=== PATIENT | female | born 1950 | race Caucasian/White ===

== ENCOUNTER 2017-01-25 01:07 | Inpatient (IN) | payer MEDICARE, BC ==
[~2017-01-25] VITALS: Ht 160 cm; Wt 79.0 kg
[2017-01-25] VITALS (7 sets, daily range): BP systolic 99–138; BP diastolic 59–77
[2017-01-25] MEDS ORDERED: ASPIRIN 81 MG TAB.CHEW PO ONE (01:30)
[2017-01-25] MEDS ORDERED: NITROGLYCERIN SUBLINGUAL 0.4 MG BOTTLE OF 25. SL PRN (01:30)
--- NOTE | 2017-01-25 01:56 | EKG ---
[address] [address] Test Date: 2017-01-25 Test Time: 01:14:39 Pat Name: ELI REYNAGA Department: Room: Gender: F Er Rn: SUNNY : 1950 Requested By: LONA GOODMAN Order Number: [id number] Reading MD: Rony Willis MD Measurements Intervals [place] Rate: 93 P: -86 OR: 94 QRS: -18 QRSD: 80 T: 26 QT: 362 QTc: 453 Interpretive Statements SINUS RHYTHM NON-SPECIFIC ST/T CHANGES Electronically Signed On 01-26-2017 16:38:33 CRYSTAL EVALUATOR by Rony Willis MD
[2017-01-25 02:09] LABS: BASO % 0 % (0-3); EOS # 0.2 x10^3/uL (0.0-0.7); EOS % 2 % (0-3); HEMATOCRIT 31.2 % (36.0-47.0); HEMOGLOBIN 10.5 g/dL (12.0-15.5); LYMPH # 2.5 x10^3/uL (1.0-4.8); LYMPH % 30 % (24-48); MEAN CORPUSCULAR HEMOGLOBIN 29 pg (25-35); MEAN CORPUSCULAR HGB CONC 34 g/dL (31-37); MEAN CORPUSCULAR VOLUME 85 fL (79-100); MONO # 0.5 x10^3/uL (0.0-1.1); MONO % 6 % (0-9); NEUT # 5.3 x10^3uL (1.8-7.7); NEUT % 62 % (31-73); PLATELET COUNT 294 x10^3/uL (140-400); RED BLOOD COUNT 3.68 x10^6/uL (3.50-5.40); RED CELL DISTRIBUTION WIDTH 14.9 % (11.5-14.5); WHITE BLOOD COUNT 8.6 x10^3/uL (4.0-11.0)
[2017-01-25] MEDS ORDERED: MORPHINE SULFATE 2 MG/ML DISP.SYRIN. ONE (02:13)
[2017-01-25] MEDS ORDERED: MORPHINE SULFATE 4 MG/ML DISP.SYRIN. IV ONE (02:15)
[2017-01-25 02:29] LABS: ALBUMIN 3.3 g/dL (3.4-5.0); CALCIUM 8.5 mg/dL (8.5-10.1); CREATININE 1.4 mg/dL (0.6-1.0); GFR 37.4; MAGNESIUM 1.5 mg/dL (1.8-2.4); POTASSIUM 3.7 mmol/L (3.5-5.1); TOTAL BILIRUBIN 0.3 mg/dL (0.2-1.0); TOTAL PROTEIN 6.7 g/dL (6.4-8.2)
--- NOTE | 2017-01-25 02:56 | PHYS DOC ---
Past History Past Medical History: Cancer, GERD Past Surgical History: Cancer Surgery Alcohol Use: None Drug Use: None Adult General Chief Complaint Chief Complaint: CHEST PAIN HPI HPI Patient is a 66-year-old female who presents ambulatory to the ED with the complaint of pain across her anterior chest, substernal, which has been going on for about an hour. The patient is in town visiting family staying in a hotel. She was fine when she went to bed, she was waked up by substernal chest pain. She's never had pain like this before. The pain is a 9 or a 10. She feels a little short of breath, denies nausea, denies sweating. She feels cold but that's usual for her. Patient states that she suffers from GERD, she takes omeprazole and tries to make sure that she doesn't eat too late in the evening. This does not feel like her GERD. She denies previous cardiac history. Patient was treated for breast cancer about 20 years ago. She also had "stomach stapling" for weight loss many years ago. She has a history of anemia. She denies history of OH, cardiac history, denies history of blood clot. Review of Systems Review of Systems Constitutional: Denies fever , she is always cold and feels cold right now HENT: Denies nasal congestion or sore throat [] Respiratory: As in history of present illness Cardiovascular: As in history of present illness GI: Denies abdominal pain, nausea, vomiting, bloody stools or diarrhea [] : Denies dysuria or hematuria [] Musculoskeletal: Denies back pain or joint pain [] Integument: Denies rash or skin lesions [] All other systems were reviewed and found to be within normal limits, except as documented in this note. Current Medications Current Medications Current Medications Medications (Trade) Dose Ordered Sig/Avi Start Time Stop Time Status Last Admin Dose Admin Aspirin (Children'S Aspirin) 324 mg 1X ONCE 01/25/17 01:30 01/25/17 02:14 DC 01/25/17 01:30 324 MG Morphine Sulfate (Morphine 2mg Syringe) 2 mg STK-MED ONCE 01/25/17 02:13 01/25/17 02:14 DC Morphine Sulfate (Morphine 4mg Syringe) 2 mg 1X ONCE 01/25/17 02:15 01/25/17 02:16 DC 01/25/17 02:15 2 MG Nitroglycerin (Nitrostat) 0.4 mg PRN Q5MIN PRN 01/25/17 01:30 01/26/17 01:29 01/25/17 01:41 0.4 MG Allergies Allergies Allergies Coded Allergies Type Severity Reaction Last Updated Verified No Known Drug Allergies 01/25/17 No Physical Exam Physical Exam Constitutional: Well developed, well nourished, alert, mentating normally, warm and dry. Appears to be uncomfortable. HENT: Normocephalic, atraumatic, bilateral external ears normal, nose normal. [ ] Eyes: conjunctiva normal, no discharge. [] Neck: Normal range of motion, no stridor. [] Cardiovascular:Heart rate regular rhythm, no murmur [] Lungs & Thorax: Bilateral breath sounds clear to auscultation [] Abdomen: Bowel sounds normal, soft, no tenderness, no masses, no pulsatile masses. [] Skin: Warm, dry, no erythema, no rash. [] Extremities: No tenderness, no cyanosis, no clubbing, ROM intact, no edema. [] Neurologic: Alert and oriented X 3, normal motor function, no focal deficits noted. [] Current Patient Data Vital Signs Vital Signs Date Time Temp Pulse Resp B/P (MAP) Pulse Ox O2 Delivery O2 Flow Rate FiO2 01/25/17 02:44 85 20 118/71 (87) 100 2.0 01/25/17 02:15 Nasal Cannula 01/25/17 01:12 97.8 Lab Results Laboratory Tests Test 01/25/17 01:42 01/25/17 01:44 White Blood Count 8.6 x10^3/uL (4.0-11.0) Red Blood Count 3.68 x10^6/uL (3.50-5.40) Hemoglobin 10.5 g/dL (12.0-15.5) L Hematocrit 31.2 % (36.0-47.0) L Mean Corpuscular Volume 85 fL (79-100) Mean Corpuscular Hemoglobin 29 pg (25-35) Mean Corpuscular Hemoglobin Concent 34 g/dL (31-37) Red Cell Distribution Width 14.9 % (11.5-14.5) H Platelet Count 294 x10^3/uL (140-400) Neutrophils (%) (Auto) 62 % (31-73) Lymphocytes (%) (Auto) 30 % (24-48) Monocytes (%) (Auto) 6 % (0-9) Eosinophils (%) (Auto) 2 % (0-3) Basophils (%) (Auto) 0 % (0-3) Neutrophils # (Auto) 5.3 x10^3uL (1.8-7.7) Lymphocytes # (Auto) 2.5 x10^3/uL (1.0-4.8) Monocytes # (Auto) 0.5 x10^3/uL (0.0-1.1) Eosinophils # (Auto) 0.2 x10^3/uL (0.0-0.7) Basophils # (Auto) 0.0 x10^3/uL (0.0-0.2) Prothrombin Time 10.7 SEC (9.4-11.4) Prothrombin Time INR 1.0 (0.9-1.1) PTT 25 SEC (23-33) Sodium Level 139 mmol/L (136-145) Potassium Level 3.7 mmol/L (3.5-5.1) Chloride Level 104 mmol/L (98-107) Carbon Dioxide Level 26 mmol/L (21-32) Anion Gap 9 (6-14) Blood Urea Nitrogen 15 mg/dL (7-20) Creatinine 1.4 mg/dL (0.6-1.0) H Estimated GFR (Cockcroft-Gault) 37.4 BUN/Creatinine Ratio 11 (6-20) Glucose Level 91 mg/dL (70-99) Calcium Level 8.5 mg/dL (8.5-10.1) Magnesium Level 1.5 mg/dL (1.8-2.4) L Total Bilirubin 0.3 mg/dL (0.2-1.0) Aspartate Amino Transferase (AST) 21 U/L (15-37) Alanine Aminotransferase (ALT) 21 U/L (14-59) Alkaline Phosphatase 70 U/L (46-116) Creatine Kinase 78 U/L (26-192) Creatine Kinase MB (Mass) 0.5 ng/mL (0.0-3.6) Creatine Kinase MB Relative Index 0.6 % (0-4) Troponin I Quantitative < 0.017 ng/mL (0-0.055) RV-Xmt-J-Type Natriuretic Peptide 266 pg/mL (0-124) H Total Protein 6.7 g/dL (6.4-8.2) Albumin 3.3 g/dL (3.4-5.0) L Albumin/Globulin Ratio 1.0 (1.0-1.7) POC Troponin I 0.01 ng/ml (<0.08) EKG EKG 12-lead EKG #1 read by me. Sinus rhythm. Heart rate 93. There are no acute ST or T wave changes indicative of ischemia or infarction. No STEMI. Normal EKG. 0114[] Repeat 12-lead EKG #2 read by me. Sinus rhythm. Heart rate 87. There are no acute ST or T wave changes indicative of ischemia or infarction. No STEMI. Normal EKG. 0242 Radiology/Procedures Radiology/Procedures One view portable chest x-ray read by me. Heart size is normal. Lung carvajal are clear. Normal chest x-ray.[] Course & Med Decision Making Course & Med Decision Making Pertinent Labs and Imaging studies reviewed. (See chart for details) 66-year-old female who does not have a cardiac history presents to the ED with about one hour of substernal chest pain that is a 9 out of 10. Although she has a history of GERD. She's never had pain like this before. And it does not seem like GERD to her. Initial EKG is normal. I-STAT troponin is normal. I remain concerned about the cause of her pain. There is no other source to attribute her pain to. She was given aspirin 324 and also given a sublingual nitroglycerin. That caused her to have brief hypotension that was treated with IV fluids and rebounded quickly. Labs remarkable for mild anemia which the patient states is chronic for her. Troponin negative. The patient presented after only about an hour of pain. I don't believe we can fully rule out cardiac etiology based on one EKG and one set of enzymes in the ED. Discussed this with the patient and her . I recommend admission to the hospital for serial enzymes and observation on the telemetry unit. She also is requiring IV pain meds for her pain which is severe in nature. Patient is agreeable to be admitted to the hospital. I discussed the case with Dr. Mon. She will admit the patient. I wrote bridge orders. The patient remained stable in the ED. [] Dragon Disclaimer Dragon Disclaimer This electronic medical record was generated, in whole or in part, using a voice recognition dictation system. Departure Departure: Impression: Primary Impression: Chest pain Disposition: ADMITTED INPATIENT Admitting Physician: Veronica Mon Condition: STABLE Referrals: NON,STAFF (PCP) LONA GOODMAN MD Jan 25, 2017 02:55
[2017-01-25] MEDS ORDERED: ONDANSETRON PF 4 MG/2 ML VIAL. IV PRN (03:00)
[2017-01-25] MEDS ORDERED: LIDO:MAALOX 1:1 20 ML SINGLE DOSE PO ONE ×2 (03:00→07:45)
[2017-01-25] MEDS ORDERED: MORPHINE SULFATE 2 MG/ML DISP.SYRIN. IV PRN (03:00)
[2017-01-25] MEDS ORDERED: BUPR150T8 PO ×2 (04:01)
[2017-01-25] MEDS ORDERED: levothyroxine (04:01)
[2017-01-25] MEDS ORDERED: OMEP40CA5 PO (04:01)
[2017-01-25] MEDS ORDERED: FEXO180T81 PO (04:01)
[2017-01-25] MEDS ORDERED: BECL8.7A6 IH (04:01)
--- NOTE | 2017-01-25 06:07 | EKG ---
[address] [address] Test Date: 2017-01-25 Test Time: 02:42:46 Pat Name[facility] Department: Room: 111 A Gender: F Emr Trainer: SUNNY : 1950 Requested By: LONA GOODMAN Order Number: [id number] Reading MD: Rony Willis MD Measurements Intervals [place] Rate: 87 P: 43 IA: 158 QRS: -8 QRSD: 80 T: 26 QT: 378 QTc: 455 Interpretive Statements SINUS RHYTHM Electronically Signed On 01-26-2017 16:38:56 TRANSPORTATION CLERK by Rony Willis MD
[2017-01-25] MEDS ORDERED: MAGNESIUM SULFATE 2GM 50 ML IV ONE (06:30)
[2017-01-25 07:21] LABS: BASO % 0 % (0-3); EOS % 1 % (0-3); HEMATOCRIT 29.9 % (36.0-47.0); HEMOGLOBIN 10.2 g/dL (12.0-15.5); LYMPH # 1.5 x10^3/uL (1.0-4.8); LYMPH % 17 % (24-48); MEAN CORPUSCULAR HEMOGLOBIN 29 pg (25-35); MEAN CORPUSCULAR HGB CONC 34 g/dL (31-37); MEAN CORPUSCULAR VOLUME 85 fL (79-100); MONO # 0.6 x10^3/uL (0.0-1.1); MONO % 7 % (0-9); NEUT # 6.8 x10^3uL (1.8-7.7); NEUT % 76 % (31-73); PLATELET COUNT 257 x10^3/uL (140-400); RED BLOOD COUNT 3.53 x10^6/uL (3.50-5.40); RED CELL DISTRIBUTION WIDTH 14.4 % (11.5-14.5)
[2017-01-25 07:30] LABS: ALBUMIN 3.2 g/dL (3.4-5.0); ALBUMIN/GLOBULIN RATIO 0.9 (1.0-1.7); CALCIUM 8.5 mg/dL (8.5-10.1); CREATININE 1.5 mg/dL (0.6-1.0); GFR 34.5; POTASSIUM 4.2 mmol/L (3.5-5.1); TOTAL BILIRUBIN 0.5 mg/dL (0.2-1.0); TOTAL PROTEIN 6.7 g/dL (6.4-8.2)
[2017-01-25] MEDS: buPROPion SR 150 MG TABLET.SA PO SCH (07:51)
[2017-01-25] MEDS: PANTOPRAZOLE 40 MG TABLET. PO SCH (07:51)
[2017-01-25] MEDS: CETIRIZINE HCL 10 MG TABLET PO SCH (07:52)
--- NOTE | 2017-01-25 08:11 | RAD ---
EXAM: Chest one view. HISTORY: Chest pain. COMPARISON: None. FINDINGS: A frontal view of the chest is obtained. There are no confluent infiltrates. There is no pneumothorax or pleural effusion. The heart is not enlarged. There are surgical clips in left axilla and left upper quadrant. IMPRESSION: 1. No confluent infiltrates.
[2017-01-25] MEDS ORDERED: NON FORMULARY ITEM (Beclomethasone Dipropionate (Qvar 80MCG Inhaler) 1 PUFF) IH SCH (09:00)
[2017-01-25] MEDS ORDERED: ENOXAPARIN 30 MG/0.3 ML DISP.SYRIN. SQ SCH (09:00)
[2017-01-25] MEDS ORDERED: MAGNESIUM HYDROXIDE 2,400 MG/30 ML ORAL.SUSP. PO ONE (11:30)
[2017-01-25] MEDS: BUDESONIDE 0.5 MG/2 ML NEBU NEB SCH ×2 (11:49→11:52)
[2017-01-25 12:23] LABS: BACTERIA,URINE FEW /HPF (0-FEW); BILIRUBIN,URINE NEG (NEG); CLARITY,URINE HAZY; COLOR,URINE YELLOW; GLUCOSE,URINE NEG (NEG); NITRITE,URINE NEG (NEG); RBC,URINE 0 /HPF (0-2); SQUAMOUS EPITHELIAL CELL,UR OCC /LPF; UROBILINOGEN,URINE 0.2 mg/dL (0.2 mg/dL); WBC,URINE RARE /HPF (0-4)
[2017-01-25] MEDS ORDERED: SUMAtriptan SUCCINATE 50 MG TABLET PO PRN (15:15)
--- NOTE | 2017-01-25 15:46 | PDOC2 ---
CONSULT Date of Admission DATE: 01/25/17 TIME: 15:45 Reason for Consult: cp Problem List Problems Medical Problems: (1) Chest pain Status: Acute History of Present Illness Ms Robles is a 66 year old female who presents with complaints of chest pain starting last pm around [place]. She describes a sharp midsternal pain that radiated to the epigastric area and bilaterally along her ribs. She reports pain is somewhat increased with laying flat, worse with deep inspiration and upper body movement. She reports some associated shortness of breath. She reports having NTG without improvement, some improvement with pain meds and feels the GI coctail gave her the most relief. She does state that she is still having pain and it has never completely resolved. She denies any prior chest pain or dyspnea. She denies congestive symptoms but reports sleeping with her head somewhat elevated due to problems with GERD. She reports occasional episodes of lightheadedness, diaphoresis and a feeling like she might pass out. She relates this to needing to have a bowel movement and difficulty with constipation. She also reports problems with low blood pressure on standing and lightheadedness associated with that. She reports having had a stress test about 2 years ago which was apparently normal. She denies any palpitations or syncope. Past Medical History GERD, Constipation, breast cancer, hypothyroid, orthostatic hypotension, asthma , mild renal insufficiency, migraines Past Surgical History lumpectomy, cholecystectomy, knee surgery, bariatric surgery Family History COPD, no premature coronary disease Social History non smoker, no significant ETOH, no illicit drugs. She is visiting here from [place]. Current Medications Current Medications Aspirin (Children'S Aspirin) 324 mg 1X ONCE PO Last administered on 01:30; Start 01/25/17 at 01:30; Stop 01/25/17 at 02:14; Status DC Nitroglycerin (Nitrostat) 0.4 mg PRN Q5MIN PRN SL CP RATING > 1/10 Last administered on 01/25/17 01:41; Start 01/25/17 at 01:30; Stop 01/26/17 at 01 :29 Morphine Sulfate (Morphine 4mg Syringe) 2 mg 1X ONCE IV Last administered on 01/25/17 02:15; Start 01/25/17 at 02:15; Stop 01/25/17 at 02:16; Status DC Morphine Sulfate (Morphine 2mg Syringe) 2 mg STK-MED ONCE .ROUTE ; Start at 02:13; Stop 01/25/17 at 02:14; Status DC Multi-Ingredient Mouthwash/Gargle (Gi Cocktail) 20 ml 1X ONCE PO Last administered on 01/25/17 03:01; Start 01/25/17 at 03:00; Stop 01/25/17 at 04 :18; Status DC Ondansetron HCl (Zofran) 4 mg PRN Q4HRS PRN IV NAUSEA/VOMITING; Start at 03:00; Stop 01/26/17 at 02:59 Morphine Sulfate (Morphine 2mg Syringe) 2 mg PRN Q2HR PRN IV PAIN; Start 01/25 at 03:00; Stop 01/26/17 at 02:59 Magnesium Sulfate 50 ml @ 25 mls/hr 1X ONCE IV Last administered on 07:50; Start 01/25/17 at 06:30; Stop 01/25/17 at 08:29; Status DC Enoxaparin Sodium (Lovenox) 30 mg Q24H SQ Last administered on 01/25/17 07:51 ; Start 01/25/17 at 09:00 Bupropion HCl (Wellbutrin Sr) 150 mg DAILY PO Last administered on 01/25/17 07:51; Start 01/25/17 at 09:00 Bupropion HCl (Wellbutrin Sr) 300 mg QHS PO ; Start 01/25/17 at 21:00 Non-Formulary Medication 1 puff DAILY IH ; Start 01/25/17 at 09:00; Stop 01/25 at 09:00; Status DC Cetirizine HCl (ZyrTEC) 10 mg DAILY PO Last administered on 01/25/17 07:52; Start 01/25/17 at 09:00 Pantoprazole Sodium (Protonix) 40 mg DAILYAC PO Last administered on 07:51; Start 01/25/17 at 07:30 Budesonide (Pulmicort) 0.5 mg DAILY NEB Last administered on 01/25/17 11:52; Start 01/25/17 at 09:00 Multi-Ingredient Mouthwash/Gargle (Gi Cocktail) 20 ml 1X ONCE PO Last administered on 01/25/17 09:17; Start 01/25/17 at 07:45; Stop 01/25/17 at 07 :46; Status DC Magnesium Hydroxide (Milk Of Magnesia) 2,400 mg 1X ONCE PO Last administered on 01/25/17 11:12; Start 01/25/17 at 11:30; Stop 01/25/17 at 11:31; Status DC Sumatriptan Succinate (Imitrex) 100 mg PRN Q2HR PRN PO MIGRAINE HEADACHE Last administered on 01/25/17 15:34; Start 01/25/17 at 15:15 Active Scripts Active Reported Janae Allergy (Fexofenadine Hcl) 180 Mg Tablet 1 Tab PO DAILY Qvar 80MCG Inhaler (Beclomethasone Dipropionate) 8.7 Gm Aer.w.adap 1 Puff IH DAILY Omeprazole 40 Mg Capsule.dr 1 Cap PO DAILY [levothyroxine] DAILY Wellbutrin Sr (Bupropion Hcl) 150 Mg Tablet.er 300 Mg PO QHS Wellbutrin Sr (Bupropion Hcl) 150 Mg Tablet.er 150 Mg PO DAILY Allergies: Coded Allergies: No Known Drug Allergies (Unverified , 01/25/17) Review of System as per HPI or negative General: Alert, Oriented X3, Cooperative, mild distress HEENT: Atraumatic Lungs: Clear to auscultation, Normal air movement Heart: Regular rate, Normal S1, Normal S2, Other (no gallops, clicks or rubs) Abdomen: Normal bowel sounds, Soft Extremities: No cyanosis, No edema, Normal pulses Neuro: Normal speech, Strength at 5/5 X4 ext Psych/Mental Status: Mental status NL, Mood NL VITALS Vital Signs Date Time Temp Pulse Resp B/P (MAP) Pulse Ox O2 Delivery O2 Flow Rate FiO2 01/25/17 11:49 96 Room Air 01/25/17 11:23 99.5 94 22 99/59 (72) 01/25/17 02:44 2.0 Labs Laboratory Tests Test 01/25/17 01:42 01/25/17 01:44 01/25/17 07:00 01/25/17 11:10 White Blood Count 8.6 x10^3/uL (4.0-11.0) 9.0 x10^3/uL (4.0-11.0) Red Blood Count 3.68 x10^6/uL (3.50-5.40) 3.53 x10^6/uL (3.50-5.40) Hemoglobin 10.5 g/dL (12.0-15.5) 10.2 g/dL (12.0-15.5) Hematocrit 31.2 % (36.0-47.0) 29.9 % (36.0-47.0) Mean Corpuscular Volume 85 fL (79-100) 85 fL (79-100) Mean Corpuscular Hemoglobin 29 pg (25-35) 29 pg (25-35) Mean Corpuscular Hemoglobin Concent 34 g/dL (31-37) 34 g/dL (31-37) Red Cell Distribution Width 14.9 % (11.5-14.5) 14.4 % (11.5-14.5) Platelet Count 294 x10^3/uL (140-400) 257 x10^3/uL (140-400) Neutrophils (%) (Auto) 62 % (31-73) 76 % (31-73) Lymphocytes (%) (Auto) 30 % (24-48) 17 % (24-48) Monocytes (%) (Auto) 6 % (0-9) 7 % (0-9) Eosinophils (%) (Auto) 2 % (0-3) 1 % (0-3) Basophils (%) (Auto) 0 % (0-3) 0 % (0-3) Neutrophils # (Auto) 5.3 x10^3uL (1.8-7.7) 6.8 x10^3uL (1.8-7.7) Lymphocytes # (Auto) 2.5 x10^3/uL (1.0-4.8) 1.5 x10^3/uL (1.0-4.8) Monocytes # (Auto) 0.5 x10^3/uL (0.0-1.1) 0.6 x10^3/uL (0.0-1.1) Eosinophils # (Auto) 0.2 x10^3/uL (0.0-0.7) 0.0 x10^3/uL (0.0-0.7) Basophils # (Auto) 0.0 x10^3/uL (0.0-0.2) 0.0 x10^3/uL (0.0-0.2) Prothrombin Time 10.7 SEC (9.4-11.4) Prothromb Time International Ratio 1.0 (0.9-1.1) Activated Partial Thromboplast Time 25 SEC (23-33) Sodium Level 139 mmol/L (136-145) 138 mmol/L (136-145) Potassium Level 3.7 mmol/L (3.5-5.1) 4.2 mmol/L (3.5-5.1) Chloride Level 104 mmol/L (98-107) 105 mmol/L (98-107) Carbon Dioxide Level 26 mmol/L (21-32) 25 mmol/L (21-32) Anion Gap 9 (6-14) 8 (6-14) Blood Urea Nitrogen 15 mg/dL (7-20) 14 mg/dL (7-20) Creatinine 1.4 mg/dL (0.6-1.0) 1.5 mg/dL (0.6-1.0) Estimated GFR (Cockcroft-Gault) 37.4 34.5 BUN/Creatinine Ratio 11 (6-20) 9 (6-20) Glucose Level 91 mg/dL (70-99) 104 mg/dL (70-99) Calcium Level 8.5 mg/dL (8.5-10.1) 8.5 mg/dL (8.5-10.1) Magnesium Level 1.5 mg/dL (1.8-2.4) Total Bilirubin 0.3 mg/dL (0.2-1.0) 0.5 mg/dL (0.2-1.0) Aspartate Amino Transf (AST/SGOT) 21 U/L (15-37) 79 U/L (15-37) Alanine Aminotransferase (ALT/SGPT) 21 U/L (14-59) 47 U/L (14-59) Alkaline Phosphatase 70 U/L (46-116) 70 U/L (46-116) Creatine Kinase 78 U/L (26-192) Creatine Kinase MB (Mass) 0.5 ng/mL (0.0-3.6) Creatine Kinase MB Relative Index 0.6 % (0-4) Troponin I Quantitative < 0.017 ng/mL (0-0.055) < 0.017 ng/mL (0-0.055) ML-Nmg-W-Type Natriuretic Peptide 266 pg/mL (0-124) Total Protein 6.7 g/dL (6.4-8.2) 6.7 g/dL (6.4-8.2) Albumin 3.3 g/dL (3.4-5.0) 3.2 g/dL (3.4-5.0) Albumin/Globulin Ratio 1.0 (1.0-1.7) 0.9 (1.0-1.7) Bedside Troponin I 0.01 ng/ml (<0.08) Urine Collection Type Unknown Urine Color Yellow Urine Clarity Hazy Urine pH 6.0 Urine Specific Alpha 1.010 Urine Protein Neg (NEG-TRACE) Urine Glucose (UA) Neg mg/dL (NEG) Urine Ketones (Stick) Neg mg/dL (NEG) Urine Blood Neg (NEG) Urine Nitrite Neg (NEG) Urine Bilirubin Neg (NEG) Urine Urobilinogen Dipstick 0.2 mg/dL (0.2 mg/dL) Urine Leukocyte Esterase Trace (NEG) Urine RBC 0 /HPF (0-2) Urine WBC Rare /HPF (0-4) Urine Squamous Epithelial Cells Occ /LPF Urine Bacteria Few /HPF (0-FEW) Test 01/25/17 14:12 Troponin I Quantitative < 0.017 ng/mL (0-0.055) Images EKG sinus rhythm without acute ischemic changes CXR -IMPRESSION: 1. No confluent infiltrates. Assessment/Plan 1. chest pain, atypical - CE negative x 3 2. hypotension - mild 3. presyncope - likely secondary to vasovagal - short PAT noted on monitor. would suggest outpatient monitoring. 4. gerd 5. mild renal insufficiency - likely chronic Will plan for echo and MPI in am. Problems: RISHABH GOMES FACULTY DEAN Jan 25, 2017 15:46
[2017-01-25] MEDS: IV DEXTROSE 5% - 0.9 % NACL 1,000 ML IV SCH (17:27)
--- NOTE | 2017-01-25 17:36 | HP ---
ADMIT DATE: 01/25/2017 HISTORY OF PRESENT ILLNESS: The patient is a 66-year-old female patient who walked into the Emergency Room with a complaint of pain across her anterior chest, substernal, has been going on for almost an hour. The patient is in town visiting family, staying in a hotel. She was fine when she went to bed. She was awakened by substernal chest pain. She never had pain like this before and the nearest thing that she has experienced similar when she had had acute cholecystitis. She rated the pain at 9/10 in severity. She did have a little shortness of breath. Denied any nausea, denied any sweating. She feels cold, but that she was well for her. She stated that she suffered from gastroesophageal reflux disease and she takes omeprazole and tries to make sure that she does not eat too late in the evening. She does not like feel her acid reflux. She denied any previous cardiac history. She was evaluated in the Emergency Room, has had her two sets of cardiac enzymes that were negative and was admitted for further evaluation and treatment. PAST MEDICAL HISTORY: Significant for hypothyroidism, bronchial asthma, osteoarthritis, morbid obesity, gastroesophageal reflux disease, and breast cancer. PAST SURGICAL HISTORY: Significant for cholecystectomy, appendectomy, arthroscopic surgery of her left knee and gastric sleeve surgery. She also had segmental lumpectomy of her left breast and was treated with chemotherapy and radiation treatment, the last time she saw her oncologist about 5 years ago. ALLERGIES: She has no known drug allergies. MEDICATIONS: She is currently on the following medications: She is on QVAR 80 mcg inhaler 1 puff daily. She is on Wellbutrin 150 mg daily, Wellbutrin extended release 300 mg at bedtime, fexofenadine 880 mg daily, omeprazole 40 mg once a day, and levothyroxine, the dose of which is not clear. She takes it once a day for hypothyroidism. FAMILY HISTORY: She has one sister younger and healthy. She has her mother. Her father at age of 78 because of COPD and mother is still alive at the age 90, and has atrial fibrillation. SOCIAL HISTORY: She is , has a son and daughter. She never smoked. Drinks alcohol occasionally. 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 REVIEW OF SYSTEMS: The patient denied any blurring of vision, cataract, glaucoma or macular degeneration. Denied any earache, tinnitus or sensorineural deafness. Denied any nosebleeds, stuffy nose or postnasal drip. Denied any sore throat, sore tongue, toothache, hoarseness of voice or difficulty swallowing. Did complain of some nausea, but no vomiting. She has also severe constipation, but denied any diarrhea. Denied any hematemesis, melena or hematochezia. Denied any dysuria, frequency or hematuria. Did complain of lower chest pain, some shortness of breath, but denied any cough, phlegm or hemoptysis. Denied any chills, rigors, or fever. Denied any dizziness, lightheadedness, or vertigo. PHYSICAL EXAMINATION: GENERAL: On arrival to the Emergency Room, she was somewhat pale, but not jaundiced, cyanosis, or thyromegaly. No jugular venous distention. No limb edema. VITAL SIGNS: Her heart rate was 82, blood pressure 147/87, temperature was 97.8, respiratory rate 20, and oxygen saturation was 99% on room air. HEAD, EYES, EARS, NOSE, AND THROAT: Showed normocephalic, atraumatic. NECK: Supple. HEART: Showed normal first and second sounds. No gallop, rub or murmur. CHEST: Clear to auscultation. No crepitation or rhonchi. ABDOMEN: Distended, soft. There was definitely no tenderness. No guarding or rigidity. No organomegaly. Hernial orifice intact. Bowel sounds normal. NEUROLOGIC: She was awake, alert, responding appropriately. Cranial nerves intact. EXTREMITIES: She moves extremities without difficulty. She apparently ambulates without assistance or assistive devices. LABORATORY DATA: On arrival to the Emergency Room showed that her serum sodium was 139, potassium 3.7, chloride 104, bicarbonate 26, anion gap of 9, BUN 15, creatinine 1.4, estimated GFR was 57 mL per minute. Her glucose was 91, calcium was 98.5, magnesium was 1.5. Total bilirubin, AST, ALT, alkaline phosphatase were normal. Her total protein was 6.7, albumin 3.3. Her white cell count was 8600, hemoglobin 10.5, hematocrit 31, MCV 85, and platelet count 294,000. Her prothrombin time was 10.7, INR of 1, aPTT was 25. Urinalysis showed the urine was yellow, hazy with a pH of 6, specific gravity of 1.010. The urine was negative for protein, glucose, ketones, blood, nitrite, and there was trace of leukocyte esterase, 0 RBCs, very rare WBCs, and very few bacteria. She has a chest x-ray, which showed that there are no confluent infiltrates, no pneumothorax or pleural effusion. The heart is not enlarged. There are surgical clips in the left axilla and left upper quadrant. IMPRESSION: In summary, this is a 66-year-old female patient who presented to the Emergency Room with sudden severe pain, rated about 9/10 in severity across her abdomen and radiating through and through to the back. She has so far 3 sets of cardiac enzymes that were negative. She has multitude of medical problems including hypothyroidism, bronchial asthma, and osteoarthritis. She has history of gastroesophageal reflux disease and apparently, she has what seemed to have bowel obstruction and adhesion requiring adhesiolysis. She has cholecystectomy and gastric sleeve surgery. PLAN: My plan is to arrange for her to have given that he has impaired kidney function. I will arrange for her to have a CT scan of the chest, abdomen, and pelvis without contrast and check her serum lipase and the lab work that was done before and decide on further management accordingly. She did apparently spike her temperature this afternoon up to 101.1. I will obviously send blood for culture and sensitivity and also add D-dimer to the lab work and decide the further management accordingly. FAIZAN JONES MD DR: JEFFERSON/joan JOB#: [id number] / [id number]
[2017-01-25] MEDS ORDERED: CONTRAST GIVEN MC PRN (19:45)
[2017-01-25] MEDS ORDERED: IOHEXOL 240 MG/ML 50ML VIAL. PO ONE (19:45)
[2017-01-25] MEDS: HYDROmorphone PF 1 MG/ML DISP.SYRIN IV PRN (19:55)
[2017-01-25] MEDS ORDERED: buPROPion SR 150 MG TABLET.SA PO SCH (21:00)
--- NOTE | 2017-01-25 21:26 | RAD ---
CT scan of the chest, abdomen and pelvis without contrast 01/25/2017 CLINICAL HISTORY: Chest and abdominal pain with nausea and constipation for 2 days. TECHNIQUE: After the oral administration contrast only, contiguous, 3 mm axial sections were obtained through the chest abdomen and pelvis. One or more of the following individualized dose reduction techniques were utilized for this study: 1. Automated exposure control. 2. Adjustment of the mA and/or kV according to patient size. 3. Use of iterative reconstruction technique. FINDINGS: Mild atherosclerotic calcification of the thoracic aorta is seen. The thoracic aorta is tortuous but tapers normally. The heart is normal in size. The esophagus is patulous and filled with contrast. Dependent subsegmental atelectasis is seen involving both lungs. No area of consolidation is seen. No pneumothorax or pleural effusion is noted. The unenhanced CT appearance of the liver, spleen, pancreas, adrenal glands and kidneys are within normal limits. Mild to moderate atherosclerotic calcification abdominal aorta is seen. The abdominal aorta tapers normally. The gallbladder is not visualized consistent with a cholecystectomy. Surgical clips are seen in the region of the GE junction. No free fluid or free air is seen within the abdomen. Postsurgical changes are seen involving the anterior abdominal wall. There is no evidence of bowel obstruction. Images through the pelvis demonstrate the urinary bladder to be contracted. No free fluid is seen. Scattered diverticula are seen involving the sigmoid colon. No inflammatory changes are seen in the adjacent fat. Mild degenerative changes are seen involving the thoracic and lumbar spine and both hips. IMPRESSION: No acute abnormality is seen. Electronically signed by: Mj Rice MD (01/25/2017 9:23 PM) [facility]
[2017-01-26] MEDS: HYDROmorphone PF 1 MG/ML DISP.SYRIN IV PRN (02:44)
[2017-01-26] MEDS: ONDANSETRON PF 4 MG/2 ML VIAL. IV PRN ×2 (05:19→09:54)
[2017-01-26 05:44] VITALS: BP 121/80
[2017-01-26 07:29] LABS: BASO % 0 % (0-3); EOS % 1 % (0-3); HEMATOCRIT 31.3 % (36.0-47.0); HEMOGLOBIN 10.4 g/dL (12.0-15.5); LYMPH # 1.1 x10^3/uL (1.0-4.8); LYMPH % 14 % (24-48); MEAN CORPUSCULAR HEMOGLOBIN 29 pg (25-35); MEAN CORPUSCULAR HGB CONC 33 g/dL (31-37); MEAN CORPUSCULAR VOLUME 86 fL (79-100); MONO # 0.7 x10^3/uL (0.0-1.1); MONO % 8 % (0-9); NEUT # 6.4 x10^3uL (1.8-7.7); NEUT % 77 % (31-73); PLATELET COUNT 225 x10^3/uL (140-400); RED BLOOD COUNT 3.64 x10^6/uL (3.50-5.40); RED CELL DISTRIBUTION WIDTH 14.8 % (11.5-14.5); WHITE BLOOD COUNT 8.2 x10^3/uL (4.0-11.0)
[2017-01-26 07:36] LABS: ALBUMIN/GLOBULIN RATIO 0.8 (1.0-1.7); CALCIUM 8.6 mg/dL (8.5-10.1); CREATININE 1.3 mg/dL (0.6-1.0); GFR 40.7; TOTAL BILIRUBIN 0.9 mg/dL (0.2-1.0); TOTAL PROTEIN 6.9 g/dL (6.4-8.2)
[2017-01-26] MEDS ORDERED: REGADENOSON 0.4 MG/5 ML DISP.SYRIN. IV ONE (08:45)
[2017-01-26] MEDS ORDERED: ENOXAPARIN 40 MG/0.4 ML DISP.SYRIN. SQ SCH (09:00)
--- NOTE | 2017-01-26 09:19 | CARD ---
APPROVED REPORT EXAM: Two-dimensional and M-mode echocardiogram with Doppler and color Doppler. Other Information Quality : Average Rhythm : NSR INDICATION Chest Pain Pre-syncope 2D DIMENSIONS RVDd2.2 (2.9-3.5cm)Left Atrium(2D)2.9 (1.6-4.0cm) IVSd0.9 (0.7-1.1cm)Aortic Root(2D)3.0 (2.0-3.7cm) LVDd3.9 (3.9-5.9cm)LVOT Diameter2.1 (1.8-2.4cm) PWd0.9 (0.7-1.1cm)LVDs2.5 (2.5-4.0cm) FS (%) 35.0 %SV43.1 ml LVEF(%)64.9 (>50%) Aortic Valve AoV Peak Misael.141.0cm/sAoV VTI25.5cm AO Peak GR.8.0mmHgLVOT Peak Misael.112.5cm/s LVOT VTI 19.97cmAO Mean GR.5mmHg ELINA (VMAX)2.05xw8EFJ (VTI)2.73cm2 Mitral Valve MV E Tnzncabx23.8cm/sMV E Peak Gr.4mmHg MV DECEL [id number] A Ipzxaahj71.3cm/s MV E Mean Gr.2mmHgMV FVA00vh E/A Ratio1.1MV A Nkdleifq400ca MVA (PHT)4.44cm2 Tricuspid Valve TR P. Evrfcdfn422ko/sRAP LZGWQQAF2mlWb TR Peak Gr.61avTvSLZG50clVd Pulmonary Vein S1 Tgduwnwb42.9cm/sD2 Gesescom06.6cm/s LEFT VENTRICLE The left ventricle is normal size. There is normal left ventricular wall thickness. Left ventricle sy stolic function is normal. The Ejection Fraction is 60-65%. There is normal LV segmental wall motion. The left ventricular diastolic function and filling is normal for age. There is no ventricular septa l defect visualized. RIGHT VENTRICLE The right ventricle is normal size. The right ventricular systolic function is normal. ATRIA The left atrium size is normal. The right atrium size is normal. The interatrial septum is intact wit h no evidence for an atrial septal defect or patent foramen ovale as noted on 2-D or Doppler imaging. AORTIC VALVE The aortic valve is mildly calcified. The aortic valve is trileaflet. Doppler and Color Flow revealed no significant aortic regurgitation. There is no significant aortic valvular stenosis. MITRAL VALVE The mitral valve is normal in structure and function. There is no mitral valve stenosis. Doppler and Color Flow revealed no mitral valve regurgitation noted. TRICUSPID VALVE The tricuspid valve is normal in structure and function. Doppler and Color Flow revealed trace to mil d tricuspid regurgitation. The PA pressure was estimated at 32 mmHg. There is no tricuspid valve sten osis. PULMONIC VALVE The pulmonic valve is not well visualized. Doppler and Color Flow revealed no pulmonic valvular regur gitation. There is no pulmonic valvular stenosis. GREAT VESSELS The aortic root is normal in size. Normal pulmonary venous flow (Doppler). The IVC is normal in size and collapses >50% with inspiration. PERICARDIAL EFFUSION There is no evidence of significant pericardial effusion. Critical Notification Critical Value: No <Conclusion> Left ventricle systolic function is normal. The Ejection Fraction is 60-65%. There is normal LV segmental wall motion.
--- NOTE | 2017-01-26 09:40 | PDOC ---
PROGRESS NOTES Diagnosis Problem Problems Medical Problems: (1) Chest pain Status: Acute Assessment Problems Medical Problems: (1) Chest pain Status: Acute 1. Chest pain - Echo pending, MPI today 2. hypotension - resolved 3. presyncope 4. GERD 5. nausea/vomiting - antiemetics per PCP 6. migraine - per pcp if no significant abn by echo or MPI, ok for DC from CV perspective. Recommend event monitoring thru home MD. Problems: Subjective c/o migraine and nausea. Objective Vital Signs Date Time Temp Pulse Resp B/P (MAP) Pulse Ox O2 Delivery O2 Flow Rate FiO2 01/26/17 08:00 Room Air 01/26/17 05:44 98.5 81 18 121/80 (94) 94 01/25/17 02:44 2.0 Intake and Output 01/26/17 07:00 Intake Total 1001 ml Output Total 15 ml Balance 986 ml Intake Oral 120 ml IV Total 50 ml Other 831 ml Output Emesis 15 ml # Voids 3 Abdomen: Normal bowel sounds, Soft Heart: Regular rate, Normal S1, Normal S2 Extremities: No cyanosis, No edema, Normal pulses General: Alert, Oriented X3, Cooperative, mild distress Lungs: Clear to auscultation Psych/Mental Status: Mental status NL, Mood NL Review of Relevant I have reviewed the following items claudine (where applicable) has been applied. Labs Laboratory Tests Test 01/25/17 01:42 01/25/17 01:44 01/25/17 07:00 01/25/17 11:10 White Blood Count 8.6 x10^3/uL (4.0-11.0) 9.0 x10^3/uL (4.0-11.0) Red Blood Count 3.68 x10^6/uL (3.50-5.40) 3.53 x10^6/uL (3.50-5.40) Hemoglobin 10.5 g/dL (12.0-15.5) 10.2 g/dL (12.0-15.5) Hematocrit 31.2 % (36.0-47.0) 29.9 % (36.0-47.0) Mean Corpuscular Volume 85 fL (79-100) 85 fL (79-100) Mean Corpuscular Hemoglobin 29 pg (25-35) 29 pg (25-35) Mean Corpuscular Hemoglobin Concent 34 g/dL (31-37) 34 g/dL (31-37) Red Cell Distribution Width 14.9 % (11.5-14.5) 14.4 % (11.5-14.5) Platelet Count 294 x10^3/uL (140-400) 257 x10^3/uL (140-400) Neutrophils (%) (Auto) 62 % (31-73) 76 % (31-73) Lymphocytes (%) (Auto) 30 % (24-48) 17 % (24-48) Monocytes (%) (Auto) 6 % (0-9) 7 % (0-9) Eosinophils (%) (Auto) 2 % (0-3) 1 % (0-3) Basophils (%) (Auto) 0 % (0-3) 0 % (0-3) Neutrophils # (Auto) 5.3 x10^3uL (1.8-7.7) 6.8 x10^3uL (1.8-7.7) Lymphocytes # (Auto) 2.5 x10^3/uL (1.0-4.8) 1.5 x10^3/uL (1.0-4.8) Monocytes # (Auto) 0.5 x10^3/uL (0.0-1.1) 0.6 x10^3/uL (0.0-1.1) Eosinophils # (Auto) 0.2 x10^3/uL (0.0-0.7) 0.0 x10^3/uL (0.0-0.7) Basophils # (Auto) 0.0 x10^3/uL (0.0-0.2) 0.0 x10^3/uL (0.0-0.2) Prothrombin Time 10.7 SEC (9.4-11.4) Prothromb Time International Ratio 1.0 (0.9-1.1) Activated Partial Thromboplast Time 25 SEC (23-33) Sodium Level 139 mmol/L (136-145) 138 mmol/L (136-145) Potassium Level 3.7 mmol/L (3.5-5.1) 4.2 mmol/L (3.5-5.1) Chloride Level 104 mmol/L (98-107) 105 mmol/L (98-107) Carbon Dioxide Level 26 mmol/L (21-32) 25 mmol/L (21-32) Anion Gap 9 (6-14) 8 (6-14) Blood Urea Nitrogen 15 mg/dL (7-20) 14 mg/dL (7-20) Creatinine 1.4 mg/dL (0.6-1.0) 1.5 mg/dL (0.6-1.0) Estimated GFR (Cockcroft-Gault) 37.4 34.5 BUN/Creatinine Ratio 11 (6-20) 9 (6-20) Glucose Level 91 mg/dL (70-99) 104 mg/dL (70-99) Calcium Level 8.5 mg/dL (8.5-10.1) 8.5 mg/dL (8.5-10.1) Magnesium Level 1.5 mg/dL (1.8-2.4) Total Bilirubin 0.3 mg/dL (0.2-1.0) 0.5 mg/dL (0.2-1.0) Aspartate Amino Transf (AST/SGOT) 21 U/L (15-37) 79 U/L (15-37) Alanine Aminotransferase (ALT/SGPT) 21 U/L (14-59) 47 U/L (14-59) Alkaline Phosphatase 70 U/L (46-116) 70 U/L (46-116) Creatine Kinase 78 U/L (26-192) Creatine Kinase MB (Mass) 0.5 ng/mL (0.0-3.6) Creatine Kinase MB Relative Index 0.6 % (0-4) Troponin I Quantitative < 0.017 ng/mL (0-0.055) < 0.017 ng/mL (0-0.055) BI-Leg-H-Type Natriuretic Peptide 266 pg/mL (0-124) Total Protein 6.7 g/dL (6.4-8.2) 6.7 g/dL (6.4-8.2) Albumin 3.3 g/dL (3.4-5.0) 3.2 g/dL (3.4-5.0) Albumin/Globulin Ratio 1.0 (1.0-1.7) 0.9 (1.0-1.7) Lipase 110 U/L (73-393) Bedside Troponin I 0.01 ng/ml (<0.08) Urine Collection Type Unknown Urine Color Yellow Urine Clarity Hazy Urine pH 6.0 Urine Specific [place] 1.010 Urine Protein Neg (NEG-TRACE) Urine Glucose (UA) Neg mg/dL (NEG) Urine Ketones (Stick) Neg mg/dL (NEG) Urine Blood Neg (NEG) Urine Nitrite Neg (NEG) Urine Bilirubin Neg (NEG) Urine Urobilinogen Dipstick 0.2 mg/dL (0.2 mg/dL) Urine Leukocyte Esterase Trace (NEG) Urine RBC 0 /HPF (0-2) Urine WBC Rare /HPF (0-4) Urine Squamous Epithelial Cells Occ /LPF Urine Bacteria Few /HPF (0-FEW) Test 01/25/17 14:12 01/26/17 07:05 Troponin I Quantitative < 0.017 ng/mL (0-0.055) White Blood Count 8.2 x10^3/uL (4.0-11.0) Red Blood Count 3.64 x10^6/uL (3.50-5.40) Hemoglobin 10.4 g/dL (12.0-15.5) Hematocrit 31.3 % (36.0-47.0) Mean Corpuscular Volume 86 fL (79-100) Mean Corpuscular Hemoglobin 29 pg (25-35) Mean Corpuscular Hemoglobin Concent 33 g/dL (31-37) Red Cell Distribution Width 14.8 % (11.5-14.5) Platelet Count 225 x10^3/uL (140-400) Neutrophils (%) (Auto) 77 % (31-73) Lymphocytes (%) (Auto) 14 % (24-48) Monocytes (%) (Auto) 8 % (0-9) Eosinophils (%) (Auto) 1 % (0-3) Basophils (%) (Auto) 0 % (0-3) Neutrophils # (Auto) 6.4 x10^3uL (1.8-7.7) Lymphocytes # (Auto) 1.1 x10^3/uL (1.0-4.8) Monocytes # (Auto) 0.7 x10^3/uL (0.0-1.1) Eosinophils # (Auto) 0.0 x10^3/uL (0.0-0.7) Basophils # (Auto) 0.0 x10^3/uL (0.0-0.2) Sodium Level 139 mmol/L (136-145) Potassium Level 4.0 mmol/L (3.5-5.1) Chloride Level 104 mmol/L (98-107) Carbon Dioxide Level 26 mmol/L (21-32) Anion Gap 9 (6-14) Blood Urea Nitrogen 9 mg/dL (7-20) Creatinine 1.3 mg/dL (0.6-1.0) Estimated GFR (Cockcroft-Gault) 40.7 BUN/Creatinine Ratio 7 (6-20) Glucose Level 105 mg/dL (70-99) Calcium Level 8.6 mg/dL (8.5-10.1) Total Bilirubin 0.9 mg/dL (0.2-1.0) Aspartate Amino Transf (AST/SGOT) 72 U/L (15-37) Alanine Aminotransferase (ALT/SGPT) 84 U/L (14-59) Alkaline Phosphatase 81 U/L (46-116) Lactate Dehydrogenase 179 U/L (81-234) Total Protein 6.9 g/dL (6.4-8.2) Albumin 3.0 g/dL (3.4-5.0) Albumin/Globulin Ratio 0.8 (1.0-1.7) Lipase 44 U/L (73-393) Medications Current Medications Aspirin (Children'S Aspirin) 324 mg 1X ONCE PO Last administered on 01:30; Start 01/25/17 at 01:30; Stop 01/25/17 at 02:14; Status DC Nitroglycerin (Nitrostat) 0.4 mg PRN Q5MIN PRN SL CP RATING > 1/10 Last administered on 01/25/17 01:41; Start 01/25/17 at 01:30; Stop 01/26/17 at 01 :29; Status DC Morphine Sulfate (Morphine 4mg Syringe) 2 mg 1X ONCE IV Last administered on 01/25/17 02:15; Start 01/25/17 at 02:15; Stop 01/25/17 at 02:16; Status DC Morphine Sulfate (Morphine 2mg Syringe) 2 mg STK-MED ONCE .ROUTE ; Start at 02:13; Stop 01/25/17 at 02:14; Status DC Multi-Ingredient Mouthwash/Gargle (Gi Cocktail) 20 ml 1X ONCE PO Last administered on 01/25/17 03:01; Start 01/25/17 at 03:00; Stop 01/25/17 at 04 :18; Status DC Ondansetron HCl (Zofran) 4 mg PRN Q4HRS PRN IV NAUSEA/VOMITING; Start at 03:00; Stop 01/26/17 at 02:59; Status DC Morphine Sulfate (Morphine 2mg Syringe) 2 mg PRN Q2HR PRN IV PAIN; Start 01/25 at 03:00; Stop 01/26/17 at 02:59; Status DC Magnesium Sulfate 50 ml @ 25 mls/hr 1X ONCE IV Last administered on 07:50; Start 01/25/17 at 06:30; Stop 01/25/17 at 08:29; Status DC Enoxaparin Sodium (Lovenox) 30 mg Q24H SQ Last administered on 01/25/17 07:51 ; Start 01/25/17 at 09:00; Stop 01/25/17 at 17:36; Status DC Bupropion HCl (Wellbutrin Sr) 150 mg DAILY PO Last administered on 01/25/17 07:51; Start 01/25/17 at 09:00 Bupropion HCl (Wellbutrin Sr) 300 mg QHS PO Last administered on 01/25/17 21: 40; Start 01/25/17 at 21:00 Non-Formulary Medication 1 puff DAILY IH ; Start 01/25/17 at 09:00; Stop 01/25 at 09:00; Status DC Cetirizine HCl (ZyrTEC) 10 mg DAILY PO Last administered on 01/25/17 07:52; Start 01/25/17 at 09:00 Pantoprazole Sodium (Protonix) 40 mg DAILYAC PO Last administered on 07:51; Start 01/25/17 at 07:30 Budesonide (Pulmicort) 0.5 mg DAILY NEB Last administered on 01/25/17 11:52; Start 01/25/17 at 09:00 Multi-Ingredient Mouthwash/Gargle (Gi Cocktail) 20 ml 1X ONCE PO Last administered on 11/20/17at 09:17; Start 01/25/17 at 07:45; Stop 01/25/17 at 07 :46; Status DC Magnesium Hydroxide (Milk Of Magnesia) 2,400 mg 1X ONCE PO Last administered on 01/25/17 11:12; Start 01/25/17 at 11:30; Stop 01/25/17 at 11:31; Status DC Sumatriptan Succinate (Imitrex) 100 mg PRN Q2HR PRN PO MIGRAINE HEADACHE Last administered on 01/25/17 15:34; Start 01/25/17 at 15:15 Hydromorphone HCl (Dilaudid) 1 mg PRN Q3HRS PRN IV PAIN Last administered on 02:44; Start 01/25/17 at 17:15 Dextrose/Sodium Chloride 1,000 ml @ 75 mls/hr [id number] IV Last administered on 01/25/17 17:27; Start 01/25/17 at 17:15 Ondansetron HCl (Zofran) 4 mg PRN Q4HRS PRN IV NAUSEA/VOMITING Last administered on 01/26/17 05:19; Start 01/25/17 at 17:15 Enoxaparin Sodium (Lovenox) 40 mg Q24H SQ ; Start 01/26/17 at 09:00 Iohexol (Omnipaque 240 Mg/ml) 30 ml 1X ONCE PO Last administered on 19:40; Start 01/25/17 at 19:45; Stop 01/25/17 at 19:46; Status DC Info (Do NOT chart on this entry -- for MONITORING) 1 each PRN DAILY PRN MC SEE COMMENTS; Start 01/25/17 at 19:45; Stop 01/27/17 at 19:44 Regadenoson (Lexiscan) 0.4 mg 1X ONCE IV ; Start 01/26/17 at 08:45; Stop at 08:46; Status DC Active Scripts Active Reported Janae Allergy (Fexofenadine Hcl) 180 Mg Tablet 1 Tab PO DAILY Qvar 80MCG Inhaler (Beclomethasone Dipropionate) 8.7 Gm Aer.w.adap 1 Puff IH DAILY Omeprazole 40 Mg Capsule.dr 1 Cap PO DAILY [levothyroxine] DAILY Wellbutrin Sr (Bupropion Hcl) 150 Mg Tablet.er 300 Mg PO QHS Wellbutrin Sr (Bupropion Hcl) 150 Mg Tablet.er 150 Mg PO DAILY Vitals/I & O Vital Sign - Last 24 Hours 01/25/17 01/25/17 01/25/17 01/25/17 09:44 11:23 11:49 16:07 Temp 98.9 99.5 101.1 Pulse 96 94 129 Resp 18 20 B/P (MAP) 126/63 (84) 99/59 (72) 117/73 (88) Pulse Ox 98 96 94 O2 Delivery Room Air Room Air Room Air 01/25/17 01/25/17 01/25/17 01/26/17 19:23 19:55 23:41 05:44 Temp 99.9 97.9 98.5 Pulse 95 84 81 Resp 16 18 18 B/P (MAP) 136/71 (92) 113/76 (88) 121/80 (94) Pulse Ox 95 92 94 O2 Delivery Room Air Room Air Room Air Room Air 01/26/17 08:00 O2 Delivery Room Air Intake and Output 01/25/17 01/25/17 01/26/17 15:00 23:00 07:00 Intake Total 50 ml 120 ml 831 ml Output Total 15 ml Balance 50 ml 120 ml 816 ml RISHABH GOMES APRN Jan 26, 2017 09:40
[2017-01-26] MEDS ORDERED: SUMAtriptan. 6 MG/0.5 ML VIAL SQ ONE (10:30)
[2017-01-26 10:47] VITALS: BP 124/77
[2017-01-26] MEDS: PANTOPRAZOLE 40 MG TABLET. PO SCH (11:51)
[2017-01-26] MEDS: buPROPion SR 150 MG TABLET.SA PO SCH (11:51)
[2017-01-26] MEDS: CETIRIZINE HCL 10 MG TABLET PO SCH (11:52)
[2017-01-26] MEDS: IV DEXTROSE 5% - 0.9 % NACL 1,000 ML IV SCH (11:52)
--- NOTE | 2017-01-26 13:10 | RAD ---
APPROVED REPORT Test Type: Pharmacological Stress Nurse/Tech: RT Jennifer Rosado) (N) Test Indications: chest pain, pre syncope Cardiac History: none Medications: see EHR Medical History: see EHR Resting ECG: sinus rhythm Resting Heart Rate: 86 bpm Resting Blood Pressure: 133/72mmHg Pretest Chest Pain: None Nurse/Tech Notes Consent: The procedure was explained to the patient in lay terms. Informed consent was witnessed. Amadeo eout was entered into [facility]. History and Stress Test performed by RT Jennifer Rosado) (N) Pharm. Details Pharmacologic stress testing was performed using 0.4mg per 5ml of regadenoson given intravenously ove r 7-10 seconds. POST EXERCISE Reason for Termination: Infusion complete Max HR: 176 bpm Max Blood Pressure: 151/76mmHg INTERPRETATION Stress EKG Conclusion: No acute changes were noted. Imaging Protocol IMAGE PROTOCOL: Rest Tc-99m/stress Tc-99m 1 day Rest: Stress: Viability: Radiopharm.Tc99m YequyemuoSu55g Sestamibi Dose12.0mCi 34.2mCi Duration 20min. 15min. Img Date 01/26/2017 01/26/2017 Inj-Img Yemw21sue. 60min. Rest Admin Site:IV - Right HandAdministrator: RT Alonzo (Nayeli)(N) Stress Admin Site: IV - Right HandAdministrator: RT Jennifer Rosado)(N) STRESS DATA End Diast. Vol.77.0mlAv. Heart Rate96.0bpm LVEDV index BSA2.0mlCardiac Output0.1L/min End Syst. Vol.20.0mlCO Index BSA5.5L/min LVESV index BSA0.0mlMyocardial Httf195.0g Eject. Xqvngqfg12.0% Stress Rates Pk. Fill Rate4.03EDV/secLVtime Pk. Fill 113.25msec Pk. Empty Rate4.33ESV/secLVtime Pk. Ajjhe015.82msec / Pk. Fill2.05EDV/sec Stress Scores Regional WT0.00Summed WT0.00 Regional WM0.00Summed WM1.00 The rest and stress images show normal perfusion, normal contraction and thickening. LV Perf. Quant 17 Seg. SSS3.00 17 Seg. SRS7.00 17 Seg. SDS0.00 Stress Defect Extent (% LAD)15.00Rest Defect Extent (% LAD)20.60Rev. Defect Extent (% LAD)0.00 Stress Defect Extent (% LCX) 0.00Rest Defect Extent (% LCX)12.50Rev. Defect Extent (% LCX)0.00 Stress Defect Extent (% RCA)0.00Rest Defect Extent (% RCA)1.10Rev. Defect Extent (% RCA)0.00 Stress Defect Extent (% VERNON)6.50Rest Defect Extent (% VERNON)12.60Rev. Defect Extent (% VERNON)0.00 Other Information Quality:Good Risk Assessment: Low Risk Conclusion 1. No evidence of EKG changes with stress testing. 2. Normal perfusion at stress/rest. 3. Low risk study. 4. EF > 60%.
[2017-01-26 15:14] VITALS: BP 114/72
--- NOTE | 2017-01-26 17:21 | DS ---
DATE OF DISCHARGE: 01/26/2017 HOSPITAL COURSE: The patient is resting, slightly propped up in bed, no apparent distress. She has had no further episode of epigastric pain or chest pain. Did have severe migraine headache with nausea that responded to subcutaneous Imitrex. She has had nuclear stress test, which showed that she has no evidence of EKG changes on stress testing, normal perfusion at stress and at rest, low risk study and ejection fraction was 60%. We did have extensive investigation including serum lipase that was done twice and also a CT scan of the chest, abdomen and pelvis which basically showed that the only abnormalities of the esophagus is patulous and filled with contrast. Other than that, there is no acute abnormality seen. The patient has had no further headache. No nausea, vomiting, no chest pain. Tolerated, has eaten her lunch today. A decision was made to discharge her home, but advised to follow defensive secondary coach for her dilated patulous esophagus. PHYSICAL EXAMINATION: GENERAL: When I examined her, she looked pale, but no jaundice, cyanosis, or thyromegaly. No jugular venous distension. No limb edema. VITAL SIGNS: Her heart rate was 93, blood pressure 114/72, temperature was 98.8, respiratory rate 20, and oxygen saturation was 93%. HEAD, EYES, EARS, NOSE AND THROAT: Normocephalic, atraumatic. NECK: Supple. HEART: Showed normal first and second sounds. No gallop, rub or murmur. CHEST: Clear to auscultation. No crepitation or rhonchi. ABDOMEN: Distended, soft, nontender. No guarding or rigidity. No organomegaly. Hernial orifices intact. Bowel sounds normal. NEUROLOGIC: She was awake, alert, responding appropriately. Cranial nerves intact. EXTREMITIES: She moves extremities without difficulty, ambulates without assistance or assistive devices. LABORATORY DATA: This morning showed a serum sodium 139, potassium 4, chloride 104, bicarbonate 26, anion gap of 9, BUN 9, creatinine 1.3, estimated GFR was 40 mL per minute. Her glucose 105, calcium was 8.6. Total bilirubin, AST, ALT, alkaline phosphatase slightly elevated. Her lactate dehydrogenase 179. Total protein 6.9, albumin 3. Serum lipase was 44. Her white cell count was 8200, hemoglobin 10, hematocrit 30, MCV 86 and platelet count 225,000. DISCHARGE MEDICATIONS: The patient was discharged home to continue on Qvar 18 mcg inhaler twice a day, Wellbutrin SR 150 mg daily, Wellbutrin 300 mg at bedtime, fexofenadine for Janae 180 mg once a day, omeprazole 40 mg once a day, levothyroxine, the dose is not clear. FINAL DISCHARGE DIAGNOSES: Chest pain. No evidence of myocardial infarction. Has 3 sets of cardiac enzymes that were normal and a nuclear stress test was negative. Gastroesophageal reflux disease, nausea and vomiting, resolved, migraine headache, resolved. PLAN: To discharge her home, to follow with her primary care physician and defensive secondary coach for abnormally dilated esophagus. FAIZAN JONES MD DR: JEFFERSON/joan JOB#: [id number] / [id number]
== END 2017-01-26 16:37 | disposition home or self-care (01) | DRG 392 ==
LOC: EDBD 01:07 → ER 01:07 → 1 SOUTH 03:00
PROVIDERS: ADMIT Family Medicine; ATTEND Family Medicine
DX: K21.9 Gastro-esophageal reflux disease without esophagitis (principal); I95.9 Hypotension, unspecified; E66.01 Morbid (severe) obesity due to excess calories; E03.9 Hypothyroidism, unspecified; G43.909 Migraine, unspecified, not intractable, without status migrainosus; J45.909 Unspecified asthma, uncomplicated; K59.00 Constipation, unspecified; M19.90 Unspecified osteoarthritis, unspecified site; K22.8 Other specified diseases of esophagus; N28.9 Disorder of kidney and ureter, unspecified; Z82.5 Family history of asthma and other chronic lower respiratory diseases; Z85.3 Personal history of malignant neoplasm of breast; Z92.21 Personal history of antineoplastic chemotherapy; Z68.30 Body mass index [BMI] 30.0-30.9, adult; Z90.49 Acquired absence of other specified parts of digestive tract; Z92.3 Personal history of irradiation; Z82.49 Family history of ischemic heart disease and other diseases of the circulatory system; Z98.84 Bariatric surgery status
CPT/HCPCS: 36415; 71010; 71250; 74176; 78452; 80053; 81001; 82553; 83615; 83690; 83735; 83880; 84484; 85025; 85610; 85730; 87040; 87086; 93005; 93017; 93306; 94640; 96374; 96375; 96376; A9500; J1170; J1650; J2270; J2405; J2785; J3030; J3475; J7042; J7626; Q9966